=== PATIENT | female | born 1955 | race Caucasian/White ===

== ENCOUNTER → 2017-10-19 | Outpatient (CLI) | payer BC ==
--- NOTE | 2017-10-19 14:47 | Diagnostic Imaging Report ---
Renal and bladder ultrasound, 10/19/2017 Clinical history: Chronic kidney disease, stage III. Comparison: None Technique: Grayscale and color Doppler ultrasound Findings: Right: 10.6 x 3.9 x 4.2 cm. Cortical thickness 1.4 cm. Left: 12.3 x 4 x 5.3 cm. Cortical thickness 1.3 cm. Both kidneys demonstrate mildly increased cortical parenchymal echogenicity. No conspicuous stone, cyst or mass. No hydronephrosis. Survey views of the urinary bladder are unremarkable. Ureters are patent. Prevoid bladder volume: 50 mL Post void bladder volume: zero Impression: There is mildly increased parenchymal echogenicity in keeping with chronic renal disease. Otherwise, normal study. This report was generated with voice-recognition technology. Errors in physical sciences professor can occur. Please interpret accordingly and contact a radiologist if there are any questions regarding the report. Signed by: Dr. Yomi Irwin M.D. on 10/19/2017 2:44 PM
--- NOTE | 2017-10-19 14:47 | Diagnostic Imaging Report ---
Renal and bladder ultrasound, 10/19/2017 Clinical history: Chronic kidney disease, stage III. Comparison: None Technique: Grayscale and color Doppler ultrasound Findings: Right: 10.6 x 3.9 x 4.2 cm. Cortical thickness 1.4 cm. Left: 12.3 x 4 x 5.3 cm. Cortical thickness 1.3 cm. Both kidneys demonstrate mildly increased cortical parenchymal echogenicity. No conspicuous stone, cyst or mass. No hydronephrosis. Survey views of the urinary bladder are unremarkable. Ureters are patent. Prevoid bladder volume: 50 mL Post void bladder volume: zero Impression: There is mildly increased parenchymal echogenicity in keeping with chronic renal disease. Otherwise, normal study. This report was generated with voice-recognition technology. Errors in supervisor cereal can occur. Please interpret accordingly and contact a radiologist if there are any questions regarding the report. Signed by: Dr. Yomi Irwin M.D. on 10/19/2017 2:44 PM
== END ==
LOC: US 13:38
PROVIDERS: ATTEND Internal Medicine Nephrology
DX: N18.3 Chronic kidney disease, stage 3 (moderate) (principal); E11.9 Type 2 diabetes mellitus without complications; I10 Essential (primary) hypertension
CPT/HCPCS: 76770; 76857

== ENCOUNTER 2020-03-12 16:56 | Emergency (ER) | payer BC ==
[~2020-03-12] VITALS: Ht 154.9 cm; Wt 79.4 kg
[2020-03-12] MEDS ORDERED: KETOROLAC TROMETHAMINE 30 MG/ML VIAL IM STA (17:01)
[2020-03-12] MEDS ORDERED: CYCLOBENZAPRINE5 MG PO ×2 (17:14→17:17)
[2020-03-12] MEDS ORDERED: ACETAMINOPHEN 325 MG TAB PO ONE (17:15)
[2020-03-12] MEDS ORDERED: TRAMADOL HCL 50 MG TAB PO ONE (18:45)
[2020-03-12] MEDS ORDERED: LIDOCAINE 4% PATCH TP STA (19:45)
== END 2020-03-12 20:16 | disposition home or self-care (01) ==
LOC: ER 17:10
DX: M25.511 Pain in right shoulder (principal); M54.2 Cervicalgia; M79.644 Pain in right finger(s); X50.0XXA Overexertion from strenuous movement or load, initial encounter; I10 Essential (primary) hypertension; E11.9 Type 2 diabetes mellitus without complications; E78.5 Hyperlipidemia, unspecified; K21.9 Gastro-esophageal reflux disease without esophagitis
CPT/HCPCS: 73030; 73140; 99283; J1885

== ENCOUNTER → 2023-05-16 | Day surgery (SDC) | payer MEDICARE, BC ==
[2023-05-10 15:02] LABS: BASOPHILS # (AUTO) 0.1 (0.0-0.1); BASOPHILS % 0.8 % (0.0-1.0); EOSINOPHILS # (AUTO) 0.3 (0.0-0.4); EOSINOPHILS % 3.7 % (0.0-6.0); HEMOGLOBIN 12.4 g/dL (12.0-16.0); LYMPHOCYTES # (AUTO) 2.4 (1.0-3.2); LYMPHOCYTES % 33.6 % (18.0-39.1); MEAN CORPUSCULAR HEMOGLOBIN 30.1 pg (28-32); MEAN CORPUSCULAR HGB CONC 31.8 g/dL (31-35); MEAN CORPUSCULAR VOLUME 94.7 fL (81-99); MONOCYTES # (AUTO) 0.4 (0.2-0.8); MONOCYTES % 6.1 % (4.4-11.3); NEUTROPHILS % 55.4 % (38.7-80.0); PLATELET COUNT 224 x10e3/uL (140-360); RED BLOOD COUNT 4.12 x10e6/uL (3.6-5.1); RED CELL DISTRIBUTION WIDTH 11.5 % (11.7-14.4); WHITE BLOOD COUNT 7.26 x10e3/uL (4.8-10.8)
[2023-05-10 15:13] LABS: INR 0.92; PARTIAL THROMBOPLASTIN TIME 22.9 seconds (23.8-35.5); PROTHROMBIN TIME 12.6 seconds (11.9-14.5)
[2023-05-10 15:20] LABS: ANION GAP 17.1 mmol/L (8-16); CALCIUM 9.6 mg/dL (8.4-10.2); CREATININE, SERUM 1.36 mg/dL (0.57-1.11); POTASSIUM 5.1 mmol/L (3.5-5.1)
[~2023-05-16] MED LIST: ASPIRIN81 MG PO; CYCLOBENZAPRINE5 MG PO; FENTANYL CITRATE/PF 100MCG/2 ML INJ ONE; HYDROCHLOROTHIA25 MG PO; JARDIANCE25 MG PO; LACTATED RINGER'S 1,000 ML ONE; MIDAZOLAM HCL 2 MG/2 ML VIAL ONE; MULTI-VITAMIN1 EACH PO; NEXIUM20 MG PO; OR PHACO EYE KIT ONE; PREOP PHACO EYE KIT ONE; SERTRALINE HCL50 MG PO; VITAMIN B PO; VITAMIN C500 MG PO; VITAMIN D310 MCG PO; VYTORIN 10-401 EACH PO; ZESTRIL40 MG PO
== END | disposition home or self-care (01) ==
LOC: OR 07:09
PROVIDERS: ATTEND Ophthalmology
DX: H25.11 Age-related nuclear cataract, right eye (principal); I10 Essential (primary) hypertension; E78.5 Hyperlipidemia, unspecified; E11.9 Type 2 diabetes mellitus without complications; N28.9 Disorder of kidney and ureter, unspecified; K21.9 Gastro-esophageal reflux disease without esophagitis; Z88.8 Allergy status to other drugs, medicaments and biological substances; Z01.812 Encounter for preprocedural laboratory examination; Z79.82 Long term (current) use of aspirin; Z79.899 Other long term (current) drug therapy
CPT/HCPCS: 36415 ×2; 66984; 80048; 82948; 85025; 85610; 85730; J2250; J3010; J7121; V2632